=== PATIENT | male | born 1995 | race Caucasian/White ===

== ENCOUNTER 2022-12-06 19:41 | Emergency (ER) | payer OTHER, MEDICARE, MEDICAID, SELFPAY ==
[2022-12-06 19:47] VITALS: PULSE 123; RESP 16; TEMP 36.4; O2SAT 99
[2022-12-06 19:51] VITALS: BP 118/70
[2022-12-06] MEDS: ACETAMINOPHEN 500 MG TABLET 1000 MG PO (20:25)
[2022-12-06] MEDS: NAPROXEN 500 MG TABLET PO (20:26)
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
== END 2022-12-06 20:52 | disposition home or self-care (01) ==
PROVIDERS: Emergency Provider Emergency Medicine; PCP Internal Medicine
DX: S16.1XXA Strain of muscle, fascia and tendon at neck level, initial encounter (principal); V49.40XA Driver injured in collision with unspecified motor vehicles in traffic accident, initial encounter
CPT/HCPCS: 99283; A9270